=== PATIENT | female | born 1950 | race Caucasian/White ===

== ENCOUNTER 2016-06-16 09:26 | Emergency (ER) | payer MEDICARE, OTHER ==
[~2016-06-16] VITALS: Wt 62.0 kg
[~2016-06-16 09:26] MED LIST: ALEN10TA18 PO; LYRI100 PO; MULTI VITAMIN; OXCA150T43 PO; SMV40T PO; VIMPAT PO
--- NOTE | 2016-06-16 11:26 | RADRPT ---
PROCEDURE: XR Chest. CLINICAL INDICATION: Pain. TECHNIQUE: Single AP portable chest COMPARISON: None. FINDINGS: The cardiomediastinal silhouette is within normal limits. Left chest neurovascular stable air with d istal tip overlying the region of the carotid body. .The lungs are clear though pleural effusion or focal consolidation. The osseous structures and soft tissues are unremarkable. IMPRESSION: No evidence for active cardiopulmonary disease. RPTAT:AAJJ Jordyn Locke Physician Date Time Electronically viewed and signed by Jordyn Locke Physician on 06/16/2016 11:26 ELSY/
--- NOTE | 2016-06-16 11:56 | RADRPT ---
PROCEDURE: US DVT. CLINICAL INDICATION: Pain swelling. Evaluate for upper extremity deep venous thrombosis. TECHNIQUE: Multiple longitudinal and transverse images of the the left upper extremity veins were obtained with banks scale and color Doppler imaging. 2D grayscale measurements with compression, col or Doppler flow, and augmentation was performed. COMPARISON: No prior studies are available for comparison. FINDINGS: The left jugular vein, subclavian vein, axillary vein, and brachial veins are normally compressible throughout. Color flow demonstrates normal filling of the vessel. Normal waveforms are visualized and there is normal response to augmentation. The left cephalic, radial and ulnar veins are imaged and appear unremarkable.. IMPRESSION: 1. No evidence of a deep vein thrombosis involving the left upper extremity. RPTAT: AACC Physician Rj Date Time Electronically viewed and signed by Physician Rj on 06/16/2016 11:55 /
--- NOTE | 2016-06-16 13:04 | RADRPT ---
PROCEDURE: Left breast ultrasound. CLINICAL INDICATION: Breast pain and tenderness. Fibrocystic disease of breast. TECHNIQUE: Left whole breast, 4 quadrant and retroareolar, and axillary sonography was performed. COMPARISON: None FINDINGS: No solid or suspicious masses. No areas of architectural distortion. No malignant adenopathy. No dominant cysts are present. No abscess, fluid collection or hematoma. There are calcified structures in the left upper outer quadrant; further evaluation with left Diagno stic mammography is needed. IMPRESSION: No sonographic evidence of malignancy. Probably benign calcified structures in the left upper outer quadrant. Additional evaluation with left Diagnostic mammography is needed. ACR BIRADS 0: INCOMPLETE. Additional imaging with left Diagnostic mammography is needed. RPTAT: AA .Jovita Castro MD, MD Date Time Electronically viewed and signed by .Jovita Castro MD, MD on 06/16/2016 13:03 .F/
--- NOTE | 2016-06-16 13:34 | ERD ---
ER Documentation Chief Complaint Date/Time DATE: 06/16/16 TIME: 13:32 Chief Complaint left side breast pain swelling and left arm swelling. hx of breast ca HPI 65-year-old female complains of pain in the left side of her breast and some swelling of the left arm. She has a history of breast cancer with lumpectomy and lymph node dissection from what I can tell by history. This is been worsening over the last few months. She is worried she has recurrent breast cancer. She does not have any current follow-up appointment scheduled. She states that she had additional surgery in her left breast for some type of s treatment for seizures as well. She has no recent history of surgery. ROS All systems reviewed and are negative except as per history of present illness. Medications Home Meds Reported Medications Alendronate Sodium* (Alendronate Sodium*) 10 Mg Tablet, 20 MG PO DAILY, TAB 04/13/14 [Vimpat] No Conflict Check, 100 MG PO BID 08/30/13 Pregabalin* (Lyrica*) 100 Mg Capsule, 100 MG PO HS 08/30/13 Oxcarbazepine* (Oxcarbazepine*) 150 Mg Tablet, 150 MG PO BID 08/30/13 Simvastatin (Simvastatin) 40 Mg Tablet, 40 MG PO DAILY 08/30/13 [Multi Vitamin] No Conflict Check 09/09/11 Allergies Allergies: Coded Allergies: No Known Allergies (Verified Allergy, Unknown, 04/13/14) PMhx/Soc History of Surgery: Yes (LEFT BREAST BX) Anesthesia Reaction: No Hx Neurological Disorder: Yes (EPILEPSY) Hx Respiratory Disorders: No Hx Cardiac Disorders: No Hx Psychiatric Problems: No Hx Miscellaneous Medical Probl: No Hx Alcohol Use: No Hx Substance Use: Yes Hx Tobacco Use: No Physical Exam Vitals Vital Signs Date Time Temp Pulse Resp B/P Pulse Ox O2 Delivery O2 Flow Rate FiO2 06/16/16 09:41 97.6 85 20 142/67 100 Physical Exam Const: [] Alert, [id number]. Head: Atraumatic Eyes: Normal Conjunctiva ENT: Normal External Ears, Nose and Mouth. Neck: Full range of motion..~ No meningismus. Resp: Clear to auscultation bilaterally Cardio: Regular rate and rhythm, no murmurs Abd: Soft, non tender, non distended. Normal bowel sounds Skin: No petechiae or rashes. There are healed scars in the left breast. There are some slight generalized nonspecific swelling without any appreciable dominant masses. There is no erythema, erythema or fluctuance. Back: No midline or flank tenderness Ext: No cyanosis, some mild generalized edema in the left upper extremity without appreciable tenderness, masses, warmth or erythema. Left upper extremity is neurovascular intact Neur: Awake and alert Psych: Normal Mood and Affect Procedures/MDM Chest X-ray 1V Interpreted by me: Soft Tissue: No acute abnormalities Bones: No acute abnormalities Mediastinum/Cardiac Silhouette/Lungs: [No acute abnormalities]. Impression- normal 1 view chest x-ray Left upper kidney Doppler shows no evidence of DVT per Limited left breast ultrasound shows some nonspecific calcifications with a benign appearance. Correlating mammography recommended as an outpatient. Patient presents with postoperative left breast pain with a history of left- sided breast cancer treated signs of lymphedema presents notes of DVT, cellulitis, sepsis, additional emergent conditions. She will discharged home with copies of results with instructions to follow-up with primary doctor for mammography is recommended. She is to return for fevers, shortness breath, new or worsening symptoms as directed after instructions. The patient was stable with no new complaints during the ER course. Clinically, there is no current evidence to suggest meningitis, sepsis, acute abdomen, pneumonia, acute coronary syndrome, pulmonary embolism, or any other emergent condition appearing to require further evaluation or hospitalization. The patient should certainly return for any new or worsening symptoms per the aftercare instructions. They should otherwise follow-up with her primary care doctor for reevaluation this week. Departure Diagnosis: Primary Impression: Breast pain Additional Impressions: Lymphedema Lymphedema of extremity Condition: Stable Patient Instructions: Managing Lymphedema After Cancer, Lymphedema Additional Instructions: Examines normal hoy. Cheque otro vez con delgado doctor primario en el proximo aguirre or regresa para mas o nueva simptomas. REGRESA CON DELGADO DOCTOR PARA MAMMOGRAFIA. KENNETH WETZEL MD Jun 16, 2016 13:34
[2016-06-16 13:35] VITALS: BP 138/60; PULSE 64; RESP 18; TEMP 98.1
== END 2016-06-16 13:43 | disposition home or self-care (01) ==
LOC: FTE 09:26
DX: N64.4 Mastodynia (principal); I89.0 Lymphedema, not elsewhere classified; Z85.3 Personal history of malignant neoplasm of breast
CPT/HCPCS: 71010; 76642; 93971

== ENCOUNTER 2016-08-12 09:14 | Emergency (ER) | payer MEDICARE, OTHER ==
[~2016-08-12] VITALS: Ht 149.9 cm; Wt 58.0 kg
[2016-08-12 09:29] VITALS: Ht 149.9 cm; Wt 58.0 kg
--- NOTE | 2016-08-12 12:07 | RADRPT ---
PROCEDURE: US upper extremity Venous. CLINICAL INDICATION: Left upper extremity pain and edema. TECHNIQUE: Multiple sonographic images of the left upper extremity venous system was obtained util izing grayscale, color-flow, compressive sonography and doppler imaging with augmentation. The imag es were reviewed on a PACS workstation. COMPARISON: None. FINDINGS: There is normal compressibility and flow within the left internal jugular vein, subclavian vein, axi llary vein, brachial, basilic, cephalic, radial and ulnar veins IMPRESSION: 1. No sonographic evidence for left upper extremity venous thrombosis. RPTAT:AAJJ Physician Shanae Date Time Electronically viewed and signed by Physician Shanae on 08/12/2016 12:07 ELSY/
--- NOTE | 2016-08-12 12:28 | RADRPT ---
PROCEDURE: XR Chest. CLINICAL INDICATION: Chest pain TECHNIQUE: Chest PA. COMPARISON: 06/16/2016 FINDINGS: Neurovascular stimulator implant over the left chest and the stimulators wire region of the left car otid. The mediastinal structures are unremarkable. The heart is normal in size and configuration. The pu lmonary vascularity is normal. The lung nettles are unremarkable. No consolidation is identified. The pleural spaces are unremarkable. The axial skeleton is unremarkable. IMPRESSION: No active intrathoracic disease. RPTAT: HGDB .Isma Rojas MD, MD Date Time Electronically viewed and signed by .Isma Rojas MD, on 08/12/2016 12:28 .B/
[2016-08-12] MEDS ORDERED: CEPHALEXIN 500 MG CAP PO ONE (12:30)
[2016-08-12] MEDS ORDERED: IBUPROFEN 200 MG TAB PO ONE (12:30)
[2016-08-12] MEDS ORDERED: CEPH-443 PO (12:38)
[2016-08-12] MEDS ORDERED: IBUP400T22 PO (12:38)
--- NOTE | 2016-08-12 12:42 | ERD ---
ER Documentation Chief Complaint Date/Time DATE: 08/12/16 TIME: 12:40 Chief Complaint PAINFUL, SWOLLEN LEFT ARM, HAND AND NECK X 1 MONTH GOT WORST IN LAST 3 DAYS HPI 66-year-old female presents with left arm swelling worsening over the last month 3 days. She has no fevers or history of trauma. Patient has a history notable surgeries of the left breast and axillary for breast cancer but none for several years. Patient denies any shortness of breath, fevers, vomiting, chest pain. She has some pain in her left upper scapular area over the last week as well. She denies any inciting events. ROS All systems reviewed and are negative except as per history of present illness. Medications Home Meds Active Scripts Cephalexin* (Keflex*) 500 Mg Capsule, 500 MG PO QID for 7 Days, CAP Prov:KENNETH WETZEL MD 08/12/16 Ibuprofen* (Motrin*) 400 Mg Tab, 400 MG PO Q6, #15 TAB Prov:KENNETH WETZEL MD 08/12/16 Reported Medications Alendronate Sodium* (Alendronate Sodium*) 10 Mg Tablet, 20 MG PO DAILY, TAB 04/13/14 [Vimpat] No Conflict Check, 100 MG PO BID 08/30/13 Pregabalin* (Lyrica*) 100 Mg Capsule, 100 MG PO HS 08/30/13 Oxcarbazepine* (Oxcarbazepine*) 150 Mg Tablet, 150 MG PO BID 08/30/13 Simvastatin (Simvastatin) 40 Mg Tablet, 40 MG PO DAILY 08/30/13 [Multi Vitamin] No Conflict Check 09/09/11 Allergies Allergies: Coded Allergies: No Known Allergies (Verified Allergy, Unknown, 04/13/14) PMhx/Soc History of Surgery: Yes (l. breast CA (removed tumor), epilepsy machine in alejandra chest) Anesthesia Reaction: No Hx Neurological Disorder: Yes (EPILEPSY) Hx Respiratory Disorders: No Hx Cardiac Disorders: No Hx Psychiatric Problems: No Hx Miscellaneous Medical Probl: No Hx Alcohol Use: No Hx Substance Use: No Hx Tobacco Use: No Smoking Status: Never smoker Physical Exam Vitals Vital Signs Date Time Temp Pulse Resp B/P Pulse Ox O2 Delivery O2 Flow Rate FiO2 08/12/16 09:29 98.3 71 19 138/65 99 Physical Exam Const: [] Alert, [id number]. Head: Atraumatic Eyes: Normal Conjunctiva ENT: Normal External Ears, Nose and Mouth. Neck: Full range of motion..~ No meningismus. Resp: Clear to auscultation bilaterally Cardio: Regular rate and rhythm, no murmurs Abd: Soft, non tender, non distended. Normal bowel sounds Skin: No petechiae or rashes Back: No midline or flank tenderness Ext: No cyanosis, or edema. There is generalized edema of the left upper extremity. There is some slight redness of an area approximately 3 cm on the right medial bicep. There is no effusion, significant streaking, induration, fluctuance. The left upper extremity is neurovascular intact. Neur: Awake and alert Psych: Normal Mood and Affect Results 24 hrs Current Medications Medications (Trade) Dose Ordered Sig/Nery Route PRN Reason Start Time Stop Time Status Last Admin Dose Admin Ibuprofen (Motrin) 400 mg ONCE ONCE PO 08/12/16 12:30 08/12/16 12:31 DC 08/12/16 12:32 Cephalexin (Keflex) 500 mg ONCE ONCE PO 08/12/16 12:30 08/12/16 12:31 DC 08/12/16 12:32 Procedures/MDM Left upper semi-Doppler negative for DVT Chest X-ray 1V Interpreted by me: Soft Tissue: No acute abnormalities Bones: No acute abnormalities Mediastinum/Cardiac Silhouette/Lungs: [No acute abnormalities]. Impression- normal EKG Patient presents with lymphedema or swelling of the left upper extremity, likely dependent from previous surgeries. There is some slight area of redness but no signs of significant cellulitis. She may have a slight amount of lymphangitis on treated with Keflex and instructions for elevation at home. Patient was advised to follow-up with primary doctor this week return to ER for new or worsening symptoms. Pain in the patient's left upper back appears to be muscular skeletal. Signs and symptoms not consistent with PE, acute coronary syndrome, fracture, dislocation, additional emergent causes of left upper back pain. Departure Diagnosis: Primary Impression: Lymphedema Patient Instructions: Lymphangitis, Lymphedema Additional Instructions: Examines normal hoy. vamos a tratar parta infeccion. pone brazo arriba en casa. Cheque otro vez con saxena doctor primario en el proximo aguirre or regresa para mas o nueva simptomas. KENNETH WETZEL MD Aug 12, 2016 12:42
== END 2016-08-12 12:52 | disposition home or self-care (01) ==
LOC: FTE 09:14
DX: I89.0 Lymphedema, not elsewhere classified (principal); Z85.3 Personal history of malignant neoplasm of breast
CPT/HCPCS: 71010; 93971